=== PATIENT | female | born 1975 | race Caucasian/White ===

== ENCOUNTER 2020-05-06 16:09 | Emergency (ER) | payer MEDICARE, OTHER ==
[~2020-05-06] VITALS: Ht 160 cm; Wt 65.8 kg
[2020-05-06] MEDS ORDERED: PEPCID AC20 MG PO (16:30)
[2020-05-06] MEDS ORDERED: LEVOXYL137 MCG PO (16:30)
[2020-05-06] MEDS ORDERED: VENTOLIN HFA18 GM INH (16:31)
[2020-05-06] MEDS ORDERED: ALBUTEROL0.63 MG/3 INH (16:32)
[2020-05-06] MEDS ORDERED: QVAR REDIHALE10.6 G1 (16:32)
[2020-05-06] MEDS ORDERED: ATIVAN2 MG PO (16:33)
--- NOTE | 2020-05-08 12:06 | EKG ---
[facility] [address] [facility] [place], [place] [address] Signed Normal sinus rhythm Normal ECG No previous ECGs available Confirmed by RAYSA VASQUEZ MD ([id number] on 05/08/2020 12:05:51 PM Electronically Signed By: RAYSA VASQUEZ MD 05/08/20 1206 PATIENT NAME: EVELYN NORMAN Electrocardiogram DATE OF : 77 PHYSICIAN: RAYSA VASQUEZ MD REPORT #: [id number] REPORT IS CONFIDENTIAL AND NOT TO BE RELEASED WITHOUT AUTHORIZATION
== END 2020-05-06 17:32 | disposition home or self-care (01) ==
LOC: ED 16:09
DX: R07.89 Other chest pain (principal); Z88.1 Allergy status to other antibiotic agents; Z79.899 Other long term (current) drug therapy
CPT/HCPCS: 71046; 80053; 83735; 84484; 85025; 93005; 93010; 96374; 99285-25; J1885; J7030

== ENCOUNTER 2020-08-22 18:56 | Emergency (ER) | payer MEDICARE, OTHER ==
[~2020-08-22] VITALS: Ht 160 cm; Wt 61.2 kg
[~2020-08-22 18:56] MED LIST: ALBUTEROL0.63 MG/3 INH; ATIVAN2 MG PO; LEVOXYL137 MCG PO; PEPCID AC20 MG PO; QVAR REDIHALE10.6 G1; VENTOLIN HFA18 GM INH
[2020-08-22] MEDS ORDERED: NITROGLYCERIN0.4 MG SL (19:19)
[2020-08-22] MEDS ORDERED: DICYCLOMINE HCL20 MG PO (19:19)
--- NOTE | 2020-08-24 11:38 | EKG ---
[facility] [address] [facility] [place], [place] [address] Signed Sinus tachycardia Possible Left atrial enlargement Borderline ECG When compared with ECG of 06-MAY-2020 16:14, No significant change was found Confirmed by ADOLPH DÍAZ DO ([id number]) on 08/24/2020 11:38:30 AM Electronically Signed By: ADOLPH DÍAZ DO 08/24/20 1138 PATIENT NAME: ESTEREVELYN Electrocardiogram DATE OF : 77 PHYSICIAN: ADOLPH DÍAZ DO REPORT #: [id number] REPORT IS CONFIDENTIAL AND NOT TO BE RELEASED WITHOUT AUTHORIZATION
== END 2020-08-22 21:11 | disposition home or self-care (01) ==
LOC: ED 18:56
DX: R07.89 Other chest pain (principal); J45.909 Unspecified asthma, uncomplicated; E03.9 Hypothyroidism, unspecified; Z87.891 Personal history of nicotine dependence; Z88.1 Allergy status to other antibiotic agents; Z79.899 Other long term (current) drug therapy
CPT/HCPCS: 71045; 80053; 83735; 84484; 85025; 93005; 93010; 99285-25